=== PATIENT | male | born 1930 | race Caucasian/White ===

== ENCOUNTER → 2016-08-31 | Outpatient (CLI) | payer MEDICARE, BC ==
[~2016-08-31] MED LIST: EXCEDRIN1 TAB PO; PRILOSEC 20MG20 MG PO; TESTOSTERON200 MG/ML IM; TYLENOL 650MG650 M2 PO
== END ==
LOC: LAB 14:38
DX: E03.8 Other specified hypothyroidism (principal); E29.1 Testicular hypofunction; E78.2 Mixed hyperlipidemia; R97.20 Elevated prostate specific antigen [PSA]; M81.0 Age-related osteoporosis without current pathological fracture; R20.2 Paresthesia of skin

== ENCOUNTER → 2016-11-02 | Outpatient (CLI) | payer MEDICARE, BC ==
[2013-12-04 11:25] VITALS: BP 154/77
== END ==
LOC: LAB 11-01 15:37
DX: N30.00 Acute cystitis without hematuria (principal)

== ENCOUNTER → 2017-05-10 | Outpatient (CLI) | payer MEDICARE, BC ==
[2013-12-04 11:25] VITALS: BP 154/77
[2017-05-11 00:22] LABS: T3 FREE 2.2 pg/mL (1.7-3.7)
== END ==
LOC: LAB 14:40
PROVIDERS: Internal Medicine
DX: E03.8 Other specified hypothyroidism (principal)

== ENCOUNTER → 2017-06-03 | Outpatient (CLI) | payer MEDICARE, BC ==
[2013-12-04 11:25] VITALS: BP 154/77
[2017-06-03 12:56] LABS: EOS # 0.3 (0.04-0.40); EOS % 3.2 % (0.0-4.0); HEMATOCRIT 46.1 % (42.0-52.0); HEMOGLOBIN 15.4 g/dL (13.5-18.0); MEAN CELL VOLUME 90 fl (78-100); MEAN CORPUSCULAR HEMOGLOBIN 30 pg (27-31); MEAN CORPUSCULAR HGB CONC 33 g/dL (33-37); MEAN PLATELET VOLUME 9.3 fl (7.4-10.4); MONO # 0.6 (0.20-0.80); NEU # 5.1 (1.40-6.50); PLATELET COUNT 248 K/mm3 (130-400); RED CELL DISTRIBUTION WIDTH 15.4 % (11.5-14.5); WHITE BLOOD COUNT 8.1 K/mm3 (4.8-10.8)
[2017-06-03 13:13] LABS: ALBUMIN 3.9 g/dL (3.5-5.0); BUN/CREATININE RATIO 24.9 (6.0-26.0); CALCIUM 9.2 mg/dL (8.4-10.2); POTASSIUM 4.9 mmol/L (3.6-5.0); TOTAL BILIRUBIN 0.9 mg/dL (0.2-1.3); TOTAL PROTEIN 7.6 g/dL (6.3-8.2)
[2017-06-03 14:07] LABS: ERYTHROCYTE SEDIMENTATION RATE 20 mm/hr (0-20)
[2017-06-03 23:36] LABS: TESTOSTERONE 97 ng/dL (221-716)
== END ==
LOC: LAB 12:22
PROVIDERS: Internal Medicine
DX: I48.0 Paroxysmal atrial fibrillation (principal); E03.8 Other specified hypothyroidism; E29.1 Testicular hypofunction; R20.2 Paresthesia of skin

== ENCOUNTER → 2017-09-15 | Outpatient (CLI) | payer MEDICARE, BC ==
[2013-12-04 11:25] VITALS: BP 154/77
[2017-09-15 12:19] LABS: EOS # 0.3 (0.04-0.40); EOS % 2.8 % (0.0-4.0); HEMOGLOBIN 16.4 g/dL (13.5-18.0); LYMPH# 1.8 (1.50-4.00); MEAN CELL VOLUME 85 fl (78-100); MEAN CORPUSCULAR HEMOGLOBIN 28 pg (27-31); MEAN CORPUSCULAR HGB CONC 33 g/dL (33-37); MEAN PLATELET VOLUME 8.9 fl (7.4-10.4); MONO # 0.7 (0.20-0.80); NEU # 7.1 (1.40-6.50); PLATELET COUNT 292 K/mm3 (130-400); RED BLOOD COUNT 5.86 M/mm3 (4.20-5.60); RED CELL DISTRIBUTION WIDTH 14.9 % (11.5-14.5); WHITE BLOOD COUNT 9.8 K/mm3 (4.8-10.8)
[2017-09-15 12:29] LABS: ALBUMIN 4.4 g/dL (3.5-5.0); BUN/CREATININE RATIO 20.7 (6.0-26.0); CALCIUM 9.3 mg/dL (8.4-10.2); POTASSIUM 4.9 mmol/L (3.6-5.0); TOTAL BILIRUBIN 0.8 mg/dL (0.2-1.3); TOTAL PROTEIN 8.2 g/dL (6.3-8.2)
[2017-09-15 13:22] LABS: ERYTHROCYTE SEDIMENTATION RATE 9 mm/hr (0-20)
[2017-09-15 23:16] LABS: T3 FREE 2.9 pg/mL (1.7-3.7)
== END ==
LOC: LAB 12:00
PROVIDERS: Internal Medicine
DX: I48.0 Paroxysmal atrial fibrillation (principal); E03.8 Other specified hypothyroidism; R20.2 Paresthesia of skin

== ENCOUNTER → 2017-12-22 | Outpatient (CLI) | payer MEDICARE, BC ==
[2013-12-04 11:25] VITALS: BP 154/77
[2017-12-22 12:01] LABS: EOS # 0.3 (0.04-0.40); EOS % 3.2 % (0.0-4.0); HEMATOCRIT 48.3 % (42.0-52.0); LYMPH# 1.5 (1.50-4.00); MEAN CELL VOLUME 87 fl (78-100); MEAN CORPUSCULAR HEMOGLOBIN 29 pg (27-31); MEAN CORPUSCULAR HGB CONC 33 g/dL (33-37); MEAN PLATELET VOLUME 9.5 fl (7.4-10.4); MONO # 0.6 (0.20-0.80); NEU # 5.9 (1.40-6.50); PLATELET COUNT 232 K/mm3 (130-400); RED BLOOD COUNT 5.56 M/mm3 (4.20-5.60); RED CELL DISTRIBUTION WIDTH 16.5 % (11.5-14.5); WHITE BLOOD COUNT 8.4 K/mm3 (4.8-10.8)
[2017-12-22 12:18] LABS: ALBUMIN 4.2 g/dL (3.5-5.0); BUN/CREATININE RATIO 18.9 (6.0-26.0); POTASSIUM 4.5 mmol/L (3.6-5.0); TOTAL BILIRUBIN 0.5 mg/dL (0.2-1.3); TOTAL PROTEIN 7.5 g/dL (6.3-8.2)
[2017-12-22 13:03] LABS: ERYTHROCYTE SEDIMENTATION RATE 6 mm/hr (0-20)
[2017-12-23 01:58] LABS: T3 FREE 2.6 pg/mL (1.7-3.7); TESTOSTERONE 1168 ng/dL (221-716)
== END ==
LOC: LAB 11:35
PROVIDERS: Internal Medicine
DX: E03.8 Other specified hypothyroidism (principal); I48.0 Paroxysmal atrial fibrillation; R20.0 Anesthesia of skin; R20.2 Paresthesia of skin; E29.1 Testicular hypofunction

== ENCOUNTER 2017-12-30 17:41 | Emergency (ER) | payer MEDICARE, BC ==
[~2017-12-30] VITALS: Wt 101.9 kg
[~2017-12-30 17:41] MED LIST changes: -EXCEDRIN1 TAB PO
[2017-12-30] MEDS ORDERED: NERVE RENEW (18:08)
[2017-12-30] MEDS ORDERED: CORRECTOL5 M1 PO (18:09)
[2017-12-30] MEDS ORDERED: ARCTIC RUBY OIL PO (18:09)
[2017-12-30] MEDS ORDERED: TESTOSTERO200 MG/1 M IM (18:10)
[2017-12-30] MEDS ORDERED: [UNRECOGNIZED DRUG - OTHER] PO (18:10)
[2017-12-30] MEDS ORDERED: LIOTHYRONINE SO5 MCG PO (18:11)
[2017-12-30] MEDS ORDERED: SYNTHROID175 MCG PO (18:11)
[2017-12-30] MEDS ORDERED: ELIQUIS5 MG PO (18:11)
[2017-12-30] MEDS ORDERED: METOPROLOL SUCC50 M1 PO (18:12)
[2017-12-30] MEDS ORDERED: CO Q-1010 M2 (18:13)
[2017-12-30] MEDS ORDERED: NATURE'S TEARS15 M2 OP (18:14)
[2017-12-30] MEDS ORDERED: EXCEDRIN MIGRA1 EACH PO (18:15)
[2017-12-30] MEDS ORDERED: VITAMIN C PURE500 M1 PO (18:16)
[2017-12-30 19:22] VITALS: BP 118/71
== END 2017-12-30 19:22 | disposition home or self-care (01) ==
LOC: ED 17:41
DX: S30.0XXA Contusion of lower back and pelvis, initial encounter (principal); X50.9XXA Other and unspecified overexertion or strenuous movements or postures, initial encounter; Y92.009 Unspecified place in unspecified non-institutional (private) residence as the place of occurrence of the external cause; M54.5 Low back pain; Y93.9 Activity, unspecified

== ENCOUNTER → 2018-04-07 | Outpatient (CLI) | payer MEDICARE, BC ==
[~2018-04-07] MED LIST changes: +ARCTIC RUBY OIL PO; +CO Q-1010 M2; +CORRECTOL5 M1 PO; +ELIQUIS5 MG PO; +EXCEDRIN MIGRA1 EACH PO; +LIOTHYRONINE SO5 MCG PO; +METOPROLOL SUCC50 M1 PO; +NATURE'S TEARS15 M2 OP; +NERVE RENEW; +SYNTHROID175 MCG PO; +TESTOSTERO200 MG/1 M IM; +VITAMIN C PURE500 M1 PO; +[UNRECOGNIZED DRUG - OTHER] PO
[2018-04-07 12:29] LABS: EOS # 0.1 (0.04-0.40); EOS % 1.7 % (0.0-4.0); HEMATOCRIT 50.5 % (42.0-52.0); HEMOGLOBIN 16.3 g/dL (13.5-18.0); LYMPH# 1.5 (1.50-4.00); MEAN CELL VOLUME 83 fl (78-100); MEAN CORPUSCULAR HEMOGLOBIN 27 pg (27-31); MEAN CORPUSCULAR HGB CONC 32 g/dL (33-37); MEAN PLATELET VOLUME 9.2 fl (7.4-10.4); MONO # 0.8 (0.20-0.80); NEU # 5.8 (1.40-6.50); PLATELET COUNT 272 K/mm3 (130-400); RED BLOOD COUNT 6.11 M/mm3 (4.20-5.60); RED CELL DISTRIBUTION WIDTH 14.9 % (11.5-14.5); WHITE BLOOD COUNT 8.3 K/mm3 (4.8-10.8)
[2018-04-07 12:45] LABS: ALBUMIN 4.1 g/dL (3.5-5.0); CALCIUM 9.3 mg/dL (8.4-10.2); POTASSIUM 4.3 mmol/L (3.6-5.0); TOTAL BILIRUBIN 0.7 mg/dL (0.2-1.3); TOTAL PROTEIN 7.1 g/dL (6.3-8.2)
[2018-04-07 14:23] LABS: ERYTHROCYTE SEDIMENTATION RATE 5 mm/hr (0-20)
[2018-04-08 03:18] LABS: T3 FREE 2.5 pg/mL (1.7-3.7); TESTOSTERONE 519 ng/dL (221-716)
== END ==
LOC: LAB 12:07
PROVIDERS: Internal Medicine
DX: E29.1 Testicular hypofunction (principal); E03.8 Other specified hypothyroidism; I48.91 Unspecified atrial fibrillation; R20.2 Paresthesia of skin

== ENCOUNTER → 2018-04-18 | Outpatient (CLI) | payer MEDICARE, BC | LOC: RAD 13:44 | DX: M47.817 Spondylosis without myelopathy or radiculopathy, lumbosacral region (principal); M16.0 Bilateral primary osteoarthritis of hip; R10.2 Pelvic and perineal pain ==

== ENCOUNTER → 2018-06-02 | Outpatient (CLI) | payer MEDICARE, BC ==
[2018-06-02 12:07] LABS: EOS # 0.1 (0.04-0.40); EOS % 1.3 % (0.0-4.0); HEMATOCRIT 50.5 % (42.0-52.0); HEMOGLOBIN 16.2 g/dL (13.5-18.0); LYMPH# 1.7 (1.50-4.00); MEAN CELL VOLUME 83 fl (78-100); MEAN CORPUSCULAR HEMOGLOBIN 27 pg (27-31); MEAN CORPUSCULAR HGB CONC 32 g/dL (33-37); MEAN PLATELET VOLUME 9.4 fl (7.4-10.4); MONO # 0.8 (0.20-0.80); NEU # 6.6 (1.40-6.50); PLATELET COUNT 245 K/mm3 (130-400); RED BLOOD COUNT 6.07 M/mm3 (4.20-5.60); RED CELL DISTRIBUTION WIDTH 17.2 % (11.5-14.5); WHITE BLOOD COUNT 9.3 K/mm3 (4.8-10.8)
[2018-06-02 12:41] LABS: ALBUMIN 4.1 g/dL (3.5-5.0); CALCIUM 9.4 mg/dL (8.4-10.2); POTASSIUM 4.5 mmol/L (3.6-5.0); TOTAL BILIRUBIN 0.9 mg/dL (0.2-1.3)
== END ==
LOC: LAB 11:36
PROVIDERS: Internal Medicine
DX: I48.0 Paroxysmal atrial fibrillation (principal); G61.81 Chronic inflammatory demyelinating polyneuritis; M81.0 Age-related osteoporosis without current pathological fracture; E61.1 Iron deficiency

== ENCOUNTER 2018-06-09 11:58 | Inpatient (IN) | payer MEDICARE, BC ==
[~2018-06-09] VITALS: Ht 185.4 cm; Wt 100.1 kg
[2018-06-09 12:08] VITALS: BP 226/79
[2018-06-09 13:09] LABS: ALBUMIN 4.1 g/dL (3.5-5.0); CALCIUM 8.6 mg/dL (8.4-10.2); POTASSIUM 4.1 mmol/L (3.6-5.0); TOTAL BILIRUBIN 0.9 mg/dL (0.2-1.3)
[2018-06-09 14:00] VITALS: BP 130/67
[2018-06-09 15:00] VITALS: BP 130/71
[2018-06-09] MEDS ORDERED: VITAMIN D50000 I2 PO (15:43)
[2018-06-09] MEDS ORDERED: LOTRISONE15 GM TP (15:45)
[2018-06-09] MEDS ORDERED: FERROUS SULFAT325 M4 PO (15:45)
[2018-06-09] MEDS ORDERED: ANTACID500 M1 PO (15:47)
[2018-06-09] MEDS ORDERED: COLACE100 M1 PO (15:48)
[2018-06-09 16:20] VITALS: BP 130/71
[2018-06-09 19:00] VITALS: BP 114/69
[2018-06-09 23:33] VITALS: BP 149/78
[2018-06-10 03:07] VITALS: BP 154/76
[2018-06-10 06:23] VITALS: BP 155/74
[2018-06-10 10:22] LABS: URINE APPEARANCE CLEAR; URINE BILIRUBIN NEGATIVE (NEGATIVE); URINE BLOOD NEGATIVE (NEGATIVE); URINE COLOR YELLOW; URINE GLUCOSE NEGATIVE (NEGATIVE); URINE KETONE NEGATIVE (NEGATIVE); URINE LEUKOCYTE ESTERASE NEGATIVE (NEGATIVE); URINE MUCUS PRESENT (NOT PRESENT); URINE NITRATE NEGATIVE (NEGATIVE); URINE PROTEIN(semi-quant) NEGATIVE (NEGATIVE); URINE UROBILINOGEN NORMAL (NORMAL); URINE WBC 0-1 /hpf (0-3)
[2018-06-10 11:20] VITALS: BP 150/78
[2018-06-10 15:04] VITALS: BP 123/75
[2018-06-10 18:24] VITALS: BP 136/72
[2018-06-10 23:11] VITALS: BP 149/78
[2018-06-11 03:11] VITALS: BP 143/71
[2018-06-11 06:22] VITALS: BP 137/72
[2018-06-11 08:45] LABS: CALCIUM 8.5 mg/dL (8.4-10.2); POTASSIUM 3.7 mmol/L (3.6-5.0)
[2018-06-11 08:51] LABS: EOS # 0.1 (0.04-0.40); EOS % 0.8 % (0.0-4.0); HEMATOCRIT 51.9 % (42.0-52.0); HEMOGLOBIN 16.7 g/dL (13.5-18.0); MEAN CELL VOLUME 84 fl (78-100); MEAN CORPUSCULAR HEMOGLOBIN 27 pg (27-31); MEAN CORPUSCULAR HGB CONC 32 g/dL (33-37); MONO # 0.4 (0.20-0.80); NEU # 5.1 (1.40-6.50); PLATELET COUNT 222 K/mm3 (130-400); RED CELL DISTRIBUTION WIDTH 18.6 % (11.5-14.5); WHITE BLOOD COUNT 6.6 K/mm3 (4.8-10.8)
[2018-06-11 10:58] VITALS: BP 135/68
[2018-06-11 15:06] VITALS: BP 119/66
[2018-06-11 18:31] VITALS: BP 134/73
[2018-06-12] VITALS (7 sets, daily range): BP systolic 120–146; BP diastolic 64–72
[2018-06-13 02:47] VITALS: BP 123/66
[2018-06-13 06:29] VITALS: BP 145/70
[2018-06-13 11:00] VITALS: BP 115/39
[2018-06-13 11:06] LABS: EOS # 0.1 (0.04-0.40); EOS % 1.3 % (0.0-4.0); HEMATOCRIT 46.5 % (42.0-52.0); HEMOGLOBIN 14.9 g/dL (13.5-18.0); MEAN CELL VOLUME 83 fl (78-100); MEAN CORPUSCULAR HEMOGLOBIN 27 pg (27-31); MEAN CORPUSCULAR HGB CONC 32 g/dL (33-37); MEAN PLATELET VOLUME 9.5 fl (7.4-10.4); MONO # 0.3 (0.20-0.80); NEU # 4.2 (1.40-6.50); PLATELET COUNT 189 K/mm3 (130-400); RED CELL DISTRIBUTION WIDTH 17.2 % (11.5-14.5); WHITE BLOOD COUNT 5.2 K/mm3 (4.8-10.8)
[2018-06-13 11:16] LABS: ALBUMIN 3.5 g/dL (3.5-5.0); CALCIUM 8.1 mg/dL (8.4-10.2); POTASSIUM 3.6 mmol/L (3.6-5.0); TOTAL BILIRUBIN 1.3 mg/dL (0.2-1.3); TOTAL PROTEIN 6.5 g/dL (6.3-8.2)
[2018-06-13 11:18] LABS: LYMPH# 0.7 (1.50-4.00)
[2018-06-13 15:04] VITALS: BP 118/61
== END 2018-06-13 16:27 | disposition swing bed (61) | DRG 194 ==
LOC: MED/SURG 11:58
PROVIDERS: Family Medicine; Nurse Practitioner Primary Care; ADMIT Internal Medicine
DX: J18.9 Pneumonia, unspecified organism (principal); G61.81 Chronic inflammatory demyelinating polyneuritis; K90.9 Intestinal malabsorption, unspecified; E78.5 Hyperlipidemia, unspecified; I48.91 Unspecified atrial fibrillation; Z66 Do not resuscitate; R27.0 Ataxia, unspecified
CPT/HCPCS: J1956

== ENCOUNTER 2018-06-13 15:57 | Inpatient (IN) | payer MEDICARE, BC ==
[~2018-06-13] VITALS: Ht 172.7 cm; Wt 100.6 kg
[~2018-06-13 15:57] MED LIST changes: +ANTACID500 M1 PO; +COLACE100 M1 PO; +FERROUS SULFAT325 M4 PO; +LOTRISONE15 GM TP; +VITAMIN D50000 I2 PO
[2018-06-13 18:54] VITALS: BP 111/54
[2018-06-14 06:14] VITALS: BP 144/72
[2018-06-14 18:00] VITALS: BP 126/82
[2018-06-15 06:26] VITALS: BP 164/84
[2018-06-15 18:00] VITALS: BP 140/68
[2018-06-16 05:56] VITALS: BP 156/78
[2018-06-16 18:00] VITALS: BP 152/83
[2018-06-17 06:32] VITALS: BP 170/78
[2018-06-17 18:31] VITALS: BP 144/72
[2018-06-18 06:04] VITALS: BP 151/79
[2018-06-18 18:13] VITALS: BP 150/74
[2018-06-19 06:10] VITALS: BP 146/75
[2018-06-19 18:00] VITALS: BP 144/67
[2018-06-20 06:04] VITALS: BP 161/88
[2018-06-20 06:04] LABS: EOS # 0.1 (0.04-0.40); EOS % 1.9 % (0.0-4.0); HEMATOCRIT 47.5 % (42.0-52.0); HEMOGLOBIN 15.2 g/dL (13.5-18.0); LYMPH# 1.1 (1.50-4.00); MEAN CELL VOLUME 83 fl (78-100); MEAN CORPUSCULAR HEMOGLOBIN 26 pg (27-31); MEAN CORPUSCULAR HGB CONC 32 g/dL (33-37); MEAN PLATELET VOLUME 9.5 fl (7.4-10.4); MONO # 0.6 (0.20-0.80); PLATELET COUNT 246 K/mm3 (130-400); RED BLOOD COUNT 5.75 M/mm3 (4.20-5.60); RED CELL DISTRIBUTION WIDTH 16.5 % (11.5-14.5)
[2018-06-20 06:19] LABS: ALBUMIN 3.4 g/dL (3.5-5.0); CALCIUM 8.8 mg/dL (8.4-10.2); POTASSIUM 3.8 mmol/L (3.6-5.0); TOTAL BILIRUBIN 0.7 mg/dL (0.2-1.3); TOTAL PROTEIN 6.3 g/dL (6.3-8.2)
[2018-06-20 18:10] VITALS: BP 144/78
[2018-06-21 06:15] VITALS: BP 137/71
[2018-06-21 18:00] VITALS: BP 133/73
[2018-06-22 06:03] VITALS: BP 135/72
[2018-06-22 18:08] VITALS: BP 127/70
[2018-06-23 06:14] VITALS: BP 137/58
[2018-06-23 18:29] VITALS: BP 134/76
[2018-06-24 06:09] VITALS: BP 150/77
[2018-06-24 18:04] VITALS: BP 127/74
[2018-06-25 06:32] VITALS: BP 172/89
[2018-06-25 18:46] VITALS: BP 120/65
[2018-06-26 06:03] VITALS: BP 162/79
[2018-06-26 18:20] VITALS: BP 145/78
[2018-06-27 05:58] VITALS: BP 163/78
[2018-06-27] MEDS ORDERED: DULCOLAX S10 MG/SUPP RC (12:45)
== END 2018-06-27 14:09 | DRG 947 ==
LOC: MED/SURG 15:57
PROVIDERS: Nurse Practitioner Primary Care; ADMIT Internal Medicine
DX: R53.81 Other malaise (principal); J18.9 Pneumonia, unspecified organism; G61.81 Chronic inflammatory demyelinating polyneuritis; K90.9 Intestinal malabsorption, unspecified; Z66 Do not resuscitate; I48.91 Unspecified atrial fibrillation; Z79.01 Long term (current) use of anticoagulants; E03.9 Hypothyroidism, unspecified; E78.5 Hyperlipidemia, unspecified; E61.1 Iron deficiency; R20.2 Paresthesia of skin; K21.9 Gastro-esophageal reflux disease without esophagitis; M81.0 Age-related osteoporosis without current pathological fracture; I49.5 Sick sinus syndrome; N40.0 Benign prostatic hyperplasia without lower urinary tract symptoms
CPT/HCPCS: A9270-GY; J1071

== ENCOUNTER → 2018-12-05 | Outpatient (CLI) | payer MEDICARE, BC ==
[~2018-12-05] MED LIST changes: +DULCOLAX S10 MG/SUPP RC
[2018-12-05 12:06] LABS: EOS # 0.2 (0.04-0.40); EOS % 1.7 % (0.0-4.0); HEMATOCRIT 54.4 % (42.0-52.0); HEMOGLOBIN 18.3 g/dL (13.5-18.0); LYMPH# 1.6 (1.50-4.00); MEAN CELL VOLUME 88 fl (78-100); MEAN CORPUSCULAR HEMOGLOBIN 30 pg (27-31); MEAN CORPUSCULAR HGB CONC 34 g/dL (33-37); MEAN PLATELET VOLUME 9.7 fl (7.4-10.4); MONO # 0.7 (0.20-0.80); NEU # 6.7 (1.40-6.50); PLATELET COUNT 231 K/mm3 (130-400); RED BLOOD COUNT 6.19 M/mm3 (4.20-5.60); RED CELL DISTRIBUTION WIDTH 13.8 % (11.5-14.5); WHITE BLOOD COUNT 9.2 K/mm3 (4.8-10.8)
[2018-12-05 12:29] LABS: ALBUMIN 3.9 g/dL (3.4-4.8); POTASSIUM 4.3 mmol/L (3.5-5.1)
[2018-12-05 12:31] LABS: CALCIUM 9.1 mg/dL (8.3-10.5)
[2018-12-05 12:32] LABS: TOTAL PROTEIN 6.5 g/dL (6.2-8.1)
[2018-12-05 12:34] LABS: TOTAL BILIRUBIN 0.8 mg/dL (0.2-1.2)
[2018-12-06 15:49] LABS: T3 FREE 2.8 pg/mL (1.7-3.7)
== END ==
LOC: LAB 11:38
PROVIDERS: Internal Medicine
DX: I48.0 Paroxysmal atrial fibrillation (principal); G61.81 Chronic inflammatory demyelinating polyneuritis; E61.1 Iron deficiency; M81.0 Age-related osteoporosis without current pathological fracture; E03.8 Other specified hypothyroidism

== ENCOUNTER 2018-12-27 18:58 | Emergency (ER) | payer MEDICARE, BC ==
[~2018-12-27] VITALS: Ht 188 cm; Wt 94.1 kg
[2018-12-27 19:53] LABS: HEMATOCRIT 49.9 % (42.0-52.0); HEMOGLOBIN 17.4 g/dL (13.5-18.0); MEAN CELL VOLUME 87 fl (78-100); MEAN CORPUSCULAR HEMOGLOBIN 30 pg (27-31); MEAN CORPUSCULAR HGB CONC 35 g/dL (33-37); PLATELET COUNT 219 K/mm3 (130-400); RED BLOOD COUNT 5.75 M/mm3 (4.20-5.60)
[2018-12-27 19:56] LABS: ALBUMIN 3.9 g/dL (3.4-4.8); POTASSIUM 4.2 mmol/L (3.5-5.1)
[2018-12-27 19:58] LABS: CALCIUM 8.9 mg/dL (8.3-10.5)
[2018-12-27 19:59] LABS: TOTAL PROTEIN 6.3 g/dL (6.2-8.1)
[2018-12-27 20:01] LABS: TOTAL BILIRUBIN 1.9 mg/dL (0.2-1.2)
[2018-12-27 20:08] LABS: WHITE BLOOD COUNT 20.7 K/mm3 (4.8-10.8)
[2018-12-27 20:19] LABS: URINE APPEARANCE CLOUDY; URINE BILIRUBIN 1+ (NEGATIVE); URINE BLOOD 250 ery/uL (NEGATIVE); URINE COLOR AMBER; URINE GLUCOSE NEGATIVE (NEGATIVE); URINE KETONE 1+ (NEGATIVE); URINE LEUKOCYTE ESTERASE 2+ (NEGATIVE); URINE NITRATE POSITIVE (NEGATIVE); URINE PROTEIN(semi-quant) 2+ mg/dL (NEGATIVE); URINE UROBILINOGEN 1 mg/dL (NORMAL); URINE WBC >50 /hpf (0-3)
[2018-12-27 20:24] LABS: BAND 2 % (0-10); LYMPHOCYTE 4 % (20-51); MONOCYTE 9 % (3-10); NEUTROPHILS 85 % (42-75)
[2018-12-27 20:28] VITALS: BP 141/66
[2018-12-27] MEDS ORDERED: CARBIDOPA/LEVOD1 TE1 PO (20:54)
== END 2018-12-27 20:28 | disposition other institution (70) ==
LOC: ED 18:58
PROVIDERS: Physician Assistant
DX: N39.0 Urinary tract infection, site not specified (principal); A41.9 Sepsis, unspecified organism; E03.9 Hypothyroidism, unspecified; E78.5 Hyperlipidemia, unspecified; K21.9 Gastro-esophageal reflux disease without esophagitis; I48.91 Unspecified atrial fibrillation; Z95.0 Presence of cardiac pacemaker; Z79.01 Long term (current) use of anticoagulants
CPT/HCPCS: A4216; J0696; J7030

== ENCOUNTER 2018-12-30 04:04 | Inpatient (IN) | payer MEDICARE, BC ==
[~2018-12-30] VITALS: Ht 188 cm; Wt 91.8 kg
[~2018-12-30 04:04] MED LIST changes: +CARBIDOPA/LEVOD1 TE1 PO
--- NOTE | 2018-12-30 07:20 | NUR ---
REPORT RECEIVED FROM MOLLY AGOSTO
--- NOTE | 2018-12-30 08:00 | NUR ---
IN WITH PATIENT AT THIS TIME.
[2018-12-30] MEDS ORDERED: BACTRIM DS TAB1 EACH PO (10:27)
[2018-12-30 11:14] VITALS: BP 107/31
[2018-12-30 18:24] VITALS: BP 109/69
--- NOTE | 2018-12-30 19:30 | NUR ---
Report received from Lili Dong RN. Resting in bed, awake and a/o x 3. Bed alarm set and call light with in reach of pt.
--- NOTE | 2018-12-30 20:25 | NUR ---
Ambulated to the bathroom, two person assist. Used walker, gait belt and dictaphone operator socks on. Gait slightly unsteady. Stated he was unable to have a bowel movement, stated he did pass gas.
--- NOTE | 2018-12-30 21:49 | NUR ---
Pt c/o of back pain, given tylenol PO.
--- NOTE | 2018-12-31 04:56 | NUR ---
C/o of back pain, given tylenol PO.
[2018-12-31 06:05] VITALS: BP 141/77
--- NOTE | 2018-12-31 07:04 | NUR ---
Report given to Lili Dong RN
[2018-12-31 18:54] VITALS: BP 125/74
[2019-01-01 04:25] LABS: URINE APPEARANCE CLEAR; URINE BILIRUBIN 1+ (NEGATIVE); URINE BLOOD TRACE (NEGATIVE); URINE COLOR YELLOW; URINE GLUCOSE NEGATIVE (NEGATIVE); URINE KETONE NEGATIVE (NEGATIVE); URINE LEUKOCYTE ESTERASE TRACE (NEGATIVE); URINE NITRATE NEGATIVE (NEGATIVE); URINE PROTEIN(semi-quant) TRACE mg/dL (NEGATIVE); URINE UROBILINOGEN 8 mg/dL (NORMAL)
[2019-01-01 06:03] VITALS: BP 120/66
[2019-01-01 08:11] LABS: BASO # 0.1 (0.02-0.10); EOS # 0.2 (0.04-0.40); EOS % 2.4 % (0.0-4.0); HEMATOCRIT 45.6 % (42.0-52.0); HEMOGLOBIN 15.3 g/dL (13.5-18.0); LYMPH# 1.4 (1.50-4.00); MEAN CELL VOLUME 90 fl (78-100); MEAN CORPUSCULAR HEMOGLOBIN 30 pg (27-31); MEAN CORPUSCULAR HGB CONC 34 g/dL (33-37); MEAN PLATELET VOLUME 9.7 fl (7.4-10.4); MONO # 0.6 (0.20-0.80); NEU # 4.8 (1.40-6.50); PLATELET COUNT 211 K/mm3 (130-400); RED BLOOD COUNT 5.08 M/mm3 (4.20-5.60); RED CELL DISTRIBUTION WIDTH 13.3 % (11.5-14.5)
[2019-01-01 08:20] LABS: POTASSIUM 3.8 mmol/L (3.5-5.1)
[2019-01-01 08:21] LABS: CALCIUM 8.6 mg/dL (8.3-10.5)
[2019-01-01 18:00] VITALS: BP 146/82
--- NOTE | 2019-01-02 04:58 | NUR ---
Incontinent of urine. Nina-cares by staff. Tylenol 2 tabs given for back pain. States "it hurts the same place it has for the last 48 years."
[2019-01-02 06:11] VITALS: BP 143/79
[2019-01-02 06:24] LABS: CALCIUM 8.2 mg/dL (8.3-10.5)
--- NOTE | 2019-01-02 17:00 | NUR ---
Patient was assisted to his recliner for his dinner. He transferred with the assistance of 2 and using his walker. He shuffles and is unsteady. He is alert and oriented but Hard of hearing. his chair alarm is on and his call light is within reach.
[2019-01-02 18:35] VITALS: BP 130/73
--- NOTE | 2019-01-02 19:30 | NUR ---
Report received from Val BARNES. A/O x4, watching TV. States has back pain 2/10 at rest and 7/10 with movement. States this is a chronic pain that he says he has had for 40 some years. Had 1 Tylenol at 1725, states 2 makes him sick to his stomach. Will give another with HS medications. Assessment completed. [place]. Denies current wants or needs at this time.
--- NOTE | 2019-01-02 21:26 | NUR ---
Incontinent of large loose BM. HS laxatives held. Cares by staff, repositioned.
--- NOTE | 2019-01-03 02:49 | NUR ---
Incontinent of large amount of loose BM and urine. Nina/rectal cares by staff. Skin intact to buttocks. Repositioned.
[2019-01-03 06:19] VITALS: BP 146/79
--- NOTE | 2019-01-03 07:06 | NUR ---
Report to Purvi BARNES.
--- NOTE | 2019-01-03 07:23 | NUR ---
REPORT RECEIVED FROM GARLAND. PATIENT SLEEPING IN BED AT SHIFT REPORT.
--- NOTE | 2019-01-03 13:07 | NUR ---
PATIENT REPORTS PAIN THIS MORNING AND ASKED FOR MUSCLE RELAXER; FLEXERIL IS NOW ORDERED AND PATIENT REPORTS HE IS FEELING BETTER AND GLAD TO HAVE THE MED. PATIENT AGREED TO TAKING A SHOWER AND TOLERATED WELL. PATIENT C/O PAIN TO BACK AND HIPS TODAY AND ENCOURAGED TO GET OUT OF BED AND MOVE AROUND TO HELP WITH ACHES. PATIENT CONVERSATION TODAY HAS BEEN QUESTIONABLE CONFUSION BUT NOT SURE THAT IT IS ACUTE. PATIENT WILL TALK CLEARLY AND WILL TALK ABOUT POLITICS AND EVENTS THAT ARE CURRENTLY HAPPENING. PATIENT THEN ASKS "WHERE DID THIS BED COME FROM" AND REMINDED HE ISN'T AT [facility] THAT HE IS IN THE HOSPITAL AND HE SAYS - OH YEAH, THAT'S RIGHT. PATIENT IS PLEASANT AND SOFT SPOKEN. PATIENT DOES REPORT HE FEELS PRETTY GOOD.
[2019-01-03 18:30] VITALS: BP 127/73
--- NOTE | 2019-01-03 19:00 | NUR ---
Report received from Purvi Null RN.
--- NOTE | 2019-01-03 20:25 | NUR ---
Resting in bed, awake and a/o x 3. No c/o's of back pain, when asked pt rates pain 8 out 10. States pain is intermittemt. Bed alarm set and call light with in reach of pt. Given a ensure per pt request.
--- NOTE | 2019-01-03 20:54 | NUR ---
C/o of pain back pain. Rates pain 8 out 10 with movement. Given 1/2 flexeril PO. Given ensure for evening snack.
[2019-01-04 06:19] VITALS: BP 158/87
--- NOTE | 2019-01-04 08:26 | NUR ---
Assessment complete. Patient resting in bed at time of assessment. Denies pain at this time. Able to voice wants/needs, none at this time. Will cont to monitor.
[2019-01-04 18:29] VITALS: BP 113/69
--- NOTE | 2019-01-04 18:40 | NUR ---
Report received from Aydee BARNES. Up in recliner. A/Ox 4 with intermittent confusion at times. Rates pain 1/10 to lower back. Assessment completed. INT patent to [facility]. Chair alarm on. Call light in reach.
--- NOTE | 2019-01-05 05:37 | NUR ---
Rested well all night. Staff in to turn and change brief. Incontinent of urine. Remains mostly oriented with periods of off the wall comments.
--- NOTE | 2019-01-05 05:44 | NUR ---
Awaken for vital signs/Orthostatics. 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 Patient states "you guys don't leave anyone alone, do you?
[2019-01-05 06:00] VITALS: BP 149/64
--- NOTE | 2019-01-05 07:19 | NUR ---
Report to Val BARNES.
[2019-01-05 18:54] VITALS: BP 120/75
--- NOTE | 2019-01-05 19:33 | NUR ---
PATIENT HAD A VERY CALM DAY. HE HAD NO COMPLAINTS OF PAIN, HE STATED 2/10 PAIN BUT DID NOT WANT PAIN MED. HE HAS BEEN IN A PLEASANT MOOD. SPENT THE DAY IN AND OUT OF BED AND WATCHING TV. HE USES CALL LIGHT TO ASK FOR ASSISTANCE. HIS ALARM HAS BEEN USED FOR CHAIR AND FOR BED.
--- NOTE | 2019-01-05 20:38 | NUR ---
PT REFUSING ALL STOOL SOFTENERS AND LAXATIVES, PT STATES "I'M GOING WAY TOO MUCH, AND LAST TIME I WASN'T ABLE TO MAKE IT TO THE RESTROOM," WILL CONTINUE TO MONITOR FOR LOOSE STOOLS
--- NOTE | 2019-01-05 20:54 | NUR ---
Assessment complete. Patient resting in bed, denies pain at this time. Able to voice wants/needs, none at this time. Will cont to monitor.
[2019-01-06 06:17] VITALS: BP 136/74
--- NOTE | 2019-01-06 08:00 | NUR ---
PT UP IN CHAIR WATCHING SPORTS AND EATING BREAKFAST, SMILING, TALKATIVE, STATES HE "DOES NOT WANT HIS STOOL SOFTENERS," HE HAD "3 BM'S YESTERDAY," AND DOES NOT WANT TO HAVE THE SAME PROBLEM TODAY, DENIES ANY OTHER ACUTE CHANGES, DENIES PAIN, COMPLEX ASSESSMENT CHARTED, CHAIR ALARM ON, CALL LIGHT WITHIN REACH
[2019-01-06 18:24] VITALS: BP 128/79
--- NOTE | 2019-01-06 19:52 | NUR ---
patient is sitting up in bed watching football, he is in a pleasant mood, states he has 2/10 pain, but states he does not need pain med at this time. He is anxious to return home and asks if a date is planned for his discharge, I explained that as of now I dont have a discharge date but the swing bed meeting is this coming tuesday and we will have more of a plan for discharge after than. He is contining with his pt and ot and progressing. His bed alarm is on and his call light is within reach.
--- NOTE | 2019-01-07 00:53 | NUR ---
REPORT RECEIVED FROM JAME BARNES.
[2019-01-07 06:19] VITALS: BP 161/77
--- NOTE | 2019-01-07 08:00 | NUR ---
Assessment complete. Patient resting in bed at time of assessment. Able to voice wants/needs, none at this time. Will cont to monitor.
[2019-01-07 18:32] VITALS: BP 144/78
[2019-01-08 06:20] VITALS: BP 151/80
--- NOTE | 2019-01-08 06:50 | NUR ---
PT here swingbed for debility. Pt incont of urine and bowle. Pt has several loose stools. Pt request tylenol at HS. No further complaints during the night
[2019-01-08 18:45] VITALS: BP 157/82
--- NOTE | 2019-01-09 06:07 | NUR ---
Pt here swingbed for debility. Pt is able to make needs known to staff. Pt is incontinet of urine at times. Pt pleasent to staff. Pt has a liquid stool at begining of the shift but no after all stool softeners and laxitives were held due to diarrhea.
[2019-01-09 06:17] LABS: EOS # 0.1 (0.04-0.40); EOS % 1.7 % (0.0-4.0); HEMATOCRIT 46.6 % (42.0-52.0); HEMOGLOBIN 15.2 g/dL (13.5-18.0); LYMPH# 1.6 (1.50-4.00); MEAN CELL VOLUME 90 fl (78-100); MEAN CORPUSCULAR HEMOGLOBIN 29 pg (27-31); MEAN CORPUSCULAR HGB CONC 33 g/dL (33-37); MEAN PLATELET VOLUME 9.3 fl (7.4-10.4); MONO # 0.5 (0.20-0.80); NEU # 4.7 (1.40-6.50); PLATELET COUNT 238 K/mm3 (130-400); RED BLOOD COUNT 5.18 M/mm3 (4.20-5.60); RED CELL DISTRIBUTION WIDTH 13.1 % (11.5-14.5); WHITE BLOOD COUNT 6.9 K/mm3 (4.8-10.8)
[2019-01-09 06:19] VITALS: BP 132/78
[2019-01-09 06:29] LABS: ALBUMIN 3.3 g/dL (3.4-4.8); POTASSIUM 4.3 mmol/L (3.5-5.1)
[2019-01-09 06:30] LABS: CALCIUM 8.7 mg/dL (8.3-10.5)
[2019-01-09 06:32] LABS: TOTAL PROTEIN 6.7 g/dL (6.2-8.1)
[2019-01-09 06:33] LABS: TOTAL BILIRUBIN 0.7 mg/dL (0.2-1.2)
--- NOTE | 2019-01-09 07:00 | NUR ---
Report recevied from MOLLY Villagran.
--- NOTE | 2019-01-09 09:00 | NUR ---
Pt up in recliner for breakfast w/ help of 1. Denies any pain. A/O x 3. Call light in reach. Chair alarm on. Denies any discomforts at this time. Resp unlabored. Too held this am d/t loose stools the last few days. Continues to work with therapies.
--- NOTE | 2019-01-09 09:45 | NUR ---
Pt rates pain 7.5/10 and would like "oxy" and atarax when available. Pt up in recliner watching tv. Brace in around torso and right leg. Right hip airstrip x 2 d/i. Drsg under right thigh w/ small amount of serous drainage - remove, site cleansed w/ NS and cut piece of airstrip applied. Noted to have approx 1.4 x 0.3 width wound with some skin irritation noted laterally. New mepilex applied. Pt tolerated well - no discomfort w/ drsg change. C/O dry feet and vaseline applied to bottoms of bilateral feet and socks reapplied. Call light in reach.
--- NOTE | 2019-01-09 10:51 | NUR ---
Pt is concerned about retaining his [facility] apartment. ADM Harleen and Yessenia RN for [facility] are given and update on pt and asked to come and visit to reassure him. Pt was reassessed for discharge on Tuesday but was very weak and had been having explosive diarrhea on Tuesday and diarrhea through the weekend, thought to be from laxative use. Pt's diarrhea has subsided on this date and he has had 2 laxatives decreased over the weekend and dc'd yesterday. He will be reassessed on this date for an anticipated discharge date, possibly this week. He will be discharged w/ HH services for therapies, which [facility] is in agreement with and they will also talk to pt about this as well.
--- NOTE | 2019-01-09 11:30 | NUR ---
[facility] staff here to visit w/ patient. Pt desires to return to [facility]. Ambulates in sheth with therapy this am using walker and assist - gait fairly steady. Returns to room. UP in chair at bedside for meals.
--- NOTE | 2019-01-09 13:00 | NUR ---
Wheels self to bathroom, shaves and showers.
--- NOTE | 2019-01-09 13:42 | NUR ---
PT takes pt downstairs to Rehab for therapy. Pt requests his pain med when he returns.
--- NOTE | 2019-01-09 16:26 | NUR ---
Resting in bed, eyes closed and even, none labored respirations. Opens eyes when spoken too. Denies having any back pain. Denies needs or concerns. Bed alarm set and call light with in reach.
--- NOTE | 2019-01-09 16:30 | NUR ---
Pt had large loose stool on way to BR - expelled into brief when passed flatus. Pericare given.
[2019-01-09 18:17] VITALS: BP 138/80
--- NOTE | 2019-01-09 18:27 | NUR ---
Pt incontinent of loose herring stool - very foul odor. Up to BR using walker and assist of 1. Pericare given. ARIS Araya notified and stool for C-Diff ordered and obtained and sent to lab.
--- NOTE | 2019-01-09 19:24 | NUR ---
Report to MOLLY Marroquin.
[2019-01-10 06:14] VITALS: BP 134/79
--- NOTE | 2019-01-10 07:20 | NUR ---
Report given to Adriane Tsang RN
--- NOTE | 2019-01-10 14:00 | NUR ---
CALL TO [facility] REGARDING CDIFF RESULTS, LAB REPORTS THAT CDIFF RESULTS ARE NEGATIVE, MICHAEL BLOUNT NOTIFIED
--- NOTE | 2019-01-10 16:16 | NUR ---
[employer] STAFF REPORTS PT HAS BEEN ABLE TO ASSIST THEM THOROUGHLY WITH TOILETING TODAY, PT HAS HAD 1 STOOL THIS SHIFT THAT WAS MORE FORMED THAN IN RECENT PAST, PT DENIES STOMACH PAIN, PT REPORTS HE FEELS SAFE RETURNING BACK TO [facility], PLANS TO DC TOMORROW
[2019-01-10 18:30] VITALS: BP 129/79
--- NOTE | 2019-01-10 20:02 | NUR ---
Report received from Adriane BARNES. Resting supine in bed, watching TV. A/O x4. Denies pain or need for Tylenol at this time. Assessment completed. Scheduled HS medications taken. Denies wants or needs.
--- NOTE | 2019-01-11 04:53 | NUR ---
Up to BR with 1:1 assist and walker. Had Small loose BM. Incontinent of urine x1 this shift. Denies pain or need for analgesic.
[2019-01-11 06:14] VITALS: BP 136/82
--- NOTE | 2019-01-11 07:10 | NUR ---
Report to Rylee BARNES.
--- NOTE | 2019-01-11 07:31 | NUR ---
AWAKENS EASILY. SPEECH CLEAR. READY TO GO HOME TODAY. SMILES AND STATES "I'M LOOKING FORWARD TO IT." LUNGS CTA BILAT. CALL LIGHT IN REACH.
[2019-01-11 10:00] VITALS: BP 136/82
--- NOTE | 2019-01-11 10:43 | NUR ---
MICHAEL BLOUNT CLERK GENERAL ARRIVES TO TRANSPORT PATIENT HOME. REVIEW DC INSTRUCTIONS WITH HER AND PATIENT. MICHAEL BLOUNT WILL SCHEDULE HOSPITAL F/U WITH PCP.
== END 2019-01-11 10:43 | disposition home health service (06) | DRG 948 ==
LOC: MED/SURG 04:04
PROVIDERS: Nurse Practitioner Primary Care; Physician Assistant; ADMIT Family Medicine
DX: R53.81 Other malaise (principal); N39.0 Urinary tract infection, site not specified; G20 Parkinson's disease; I48.91 Unspecified atrial fibrillation; Z79.01 Long term (current) use of anticoagulants; N40.0 Benign prostatic hyperplasia without lower urinary tract symptoms; K21.9 Gastro-esophageal reflux disease without esophagitis; E03.9 Hypothyroidism, unspecified; E87.6 Hypokalemia; N28.9 Disorder of kidney and ureter, unspecified
CPT/HCPCS: A4216; J0696; J1885; J7030

== ENCOUNTER → 2019-01-16 | Outpatient (CLI) | payer MEDICARE, BC ==
[2019-01-11 10:00] VITALS: BP 136/82
[~2019-01-16] MED LIST changes: +BACTRIM DS TAB1 EACH PO
[2019-01-16 16:42] LABS: URINE APPEARANCE CLEAR; URINE BILIRUBIN NEGATIVE (NEGATIVE); URINE BLOOD TRACE (NEGATIVE); URINE COLOR YELLOW; URINE GLUCOSE NEGATIVE (NEGATIVE); URINE KETONE NEGATIVE (NEGATIVE); URINE LEUKOCYTE ESTERASE TRACE (NEGATIVE); URINE NITRATE NEGATIVE (NEGATIVE); URINE PROTEIN(semi-quant) TRACE mg/dL (NEGATIVE); URINE UROBILINOGEN NORMAL (NORMAL)
[2019-01-16 16:43] LABS: URINE MUCUS PRESENT (NOT PRESENT)
== END ==
LOC: LAB 12:27
PROVIDERS: Internal Medicine
DX: N30.00 Acute cystitis without hematuria (principal)

== ENCOUNTER → 2019-05-11 | Outpatient (CLI) | payer MEDICARE, BC ==
[2019-05-11 14:54] LABS: URINE APPEARANCE HAZY; URINE BILIRUBIN NEGATIVE (NEGATIVE); URINE COLOR YELLOW; URINE GLUCOSE NEGATIVE (NEGATIVE); URINE KETONE NEGATIVE (NEGATIVE); URINE PROTEIN(semi-quant) TRACE mg/dL (NEGATIVE)
[2019-05-11 14:55] LABS: URINE BLOOD TRACE (NEGATIVE); URINE LEUKOCYTE ESTERASE TRACE (NEGATIVE); URINE MUCUS PRESENT (NOT PRESENT); URINE NITRATE NEGATIVE (NEGATIVE); URINE UROBILINOGEN NORMAL (NORMAL)
== END ==
LOC: LAB 13:38
PROVIDERS: Internal Medicine
DX: N39.0 Urinary tract infection, site not specified (principal)